=== PATIENT | female | born 1950 | race Caucasian/White ===

== ENCOUNTER 2017-08-23 14:40 | Emergency (ER) | payer OTHER ==
[~2017-08-23] VITALS: Ht 172.7 cm; Wt 122.5 kg
--- NOTE | ~2017-08-23 | EKG ---
[address] [address] ELECTROCARDIOGRAM REPORT Name: NATHALYNILSA A Room #: DEP [facility]#: [id number] Admission: 08/23/17 Attend Phys: Discharge: 08/23/17 Date of : 52 Report #: [id number] THIS REPORT FOR: //name// [facility] ED Test Date: 2017-08-23 Test Time: 14:47:22 Pat Name: NILSA ANDERSEN Department: Room: Gender: F Building [employer]: MZOOK : 1950 Requested By: Kal Dale Order Number: [id number] MD: Jovany Zarate Measurements Intervals [place] Rate: 79 P: 52 [place]: 169 QRS: -7 QRSD: 88 T: 32 QT: 355 QTc: 407 Interpretive Statements Sinus rhythm No significant abnormality Compared to ECG 08/03/2009 14:03:36 No significant change was found Electronically Signed On 08-23-2017 17:43:28 CDT by Jovany Zarate [email or web address] <ELECTRONICALLY SIGNED> By: Jovany Zarate MD, [facility] 08/23/17 1743 [id number] Jovany Zarate MD, FACC /EPI
[2017-08-23] MEDS ORDERED: HYDROCHLOROTHIA25 M2 PO (14:56)
[2017-08-23] MEDS ORDERED: PREVACID30 MG PO (14:56)
[2017-08-23] MEDS ORDERED: ZOLOFT100 MG PO (14:56)
[2017-08-23] MEDS ORDERED: NORVASC5 MG PO (14:56)
[2017-08-23] MEDS ORDERED: ALLEGRA ALLERG180 MG PO (14:57)
[2017-08-23] MEDS ORDERED: ALEVE220 MG PO (14:57)
[2017-08-23 15:19] LABS: URINE BILIRUBIN NEGATIVE (Negative); URINE BLOOD 2+ (Negative); URINE CLARITY CLEAR; URINE COLOR YELLOW; URINE GLUCOSE-RANDOM* NEGATIVE (Negative); URINE KETONES NEGATIVE (Negative); URINE LEUKOCYTES TRACE (Negative); URINE NITRITE NEGATIVE (Negative); URINE PROTEIN (DIPSTICK) NEGATIVE (Negative); URINE SPECIFIC GRAVITY 1.025 (1.005-1.035); URINE UROBILINOGEN 0.2 E.U./dl (0.2-1.0)
[2017-08-23 15:30] LABS: ABSOLUTE NEUTROPHILS 3.5 thou/uL (1.4-8.2); BASOPHILS 0.7 % (0.0-2.0); EOSINOPHILS 5.6 % (0.0-3.0); LYMPHOCYTES 22.7 % (24.0-44.0); MCH 29.9 pg (26.0-34.0); MCHC 34.2 g/dL (28.0-37.0); MCV 87.3 fL (80.0-100.0); MONOCYTES 6.9 % (1.0-8.0); PLATELET COUNT 194 thou/uL (150-400); POLYS 64.1 % (36.0-66.0); RBC 4.69 mil/uL (4.20-5.00); RDW 14.3 % (10.5-14.5); WBC 5.5 thou/uL (4.0-11.0)
[2017-08-23 15:33] LABS: BACTERIA 1-9 Few /HPF (None Seen); CASTS None Seen /LPF (None Seen); CRYSTALS None Seen /LPF (None Seen); SQUAMOUS None Seen /LPF (0-3); URINE RBC 0-2 Rare /HPF (0-2); URINE WBC 6-15 Few /HPF (0-5)
[2017-08-23 15:42] LABS: CALCIUM 9.8 mg/dL (8.5-10.1); POTASSIUM 3.7 mmol/L (3.5-5.1)
[2017-08-23 15:48] LABS: ALBUMIN 3.7 g/dL (3.4-5.0); TOTAL BILIRUBIN 0.3 mg/dL (<0.1-1.0); TOTAL PROTEIN 7.6 g/dL (6.4-8.2)
[2017-08-23] MEDS ORDERED: ANTIVERT25 MG PO (16:18)
[2017-08-23] MEDS ORDERED: KEFLEX500 M1 PO (16:18)
[2017-08-23] MEDS ORDERED: ONDANSETRON HCL4 M2 PO (16:18)
== END 2017-08-23 16:38 | disposition home or self-care (01) ==
LOC: ER 14:40
PROVIDERS: Physician Assistant
DX: I10 Essential (primary) hypertension (principal); N39.0 Urinary tract infection, site not specified